=== PATIENT | male | born 1965 | race Caucasian/White ===

== ENCOUNTER 2017-02-08 11:39 | Emergency (ER) | payer BC ==
--- NOTE | 2017-02-08 12:12 | ERNOTE ---
Chest Pain/Cardiac HPI Date of Service: 02/08/17 Chief Complaint: Chest Pain Time Seen by Provider: 02/08/17 11:57 Source: patient Exam Limitations: no limitations Immunizations: IMMUNIZATION HX Immunizations Up to Date Yes History of Influenza Vaccine Yes Hx Pneumococcal Vaccination No Allergies/Adverse Reactions: Allergies No Known Allergies Allergy (Verified 02/08/17 11:56) Home Medications: HOME MEDICATIONS Albuterol Sulfate [Ventolin Hfa] 1 puff IH Q4H PRN 06/04/14 [Last Taken Unknown] Cetirizine HCl/Pseudoephedrine [Zyrtec-D Tablet] 1 each PO BID 06/04/14 [Last Taken Unknown] Montelukast Sodium [Singulair] 10 mg PO DAILY 06/04/14 [Last Taken Unknown] Ipratropium [place] 0.2 mg IH TID PRN 06/01/16 [Last Taken Unknown] Omeprazole [Prilosec] 20 mg PO DAILY 06/01/16 [Last Taken Unknown] Sodium Bicarbonate/Sod Citrat [[place] Heartburn Tab Eff] 1 each PO DAILY 06/01/16 [Last Taken Unknown] Azithromycin 250 mg PO DAILY #6 tablet 02/08/17 [Last Taken Unknown] Doxycycline Monohydrate 100 mg PO BID #20 tablet 02/08/17 [Last Taken Unknown] predniSONE [Prednisone] 3 tab PO DAILY #9 tab 02/08/17 [Last Taken Unknown] Narrative: Pt. comes in with c/o midsternal chest pressure and congestion for two days. Pt. states that along with this he has had SOB, diaphoresis, chills and fever. Pt. denies any dizziness, nausea, or vomiting. Pt. was sent to the ED after being seen there and having a elevated D dimer. Review of Systems - Review of Systems Constitutional: Present: fever, chills, weakness, fatigue, malaise. Absent: recent illness EYE: Present: no symptoms reported ENT: Present: no symptoms reported. Absent: nose congestion, nasal drainage, sore throat Respiratory: Present: shortness of breath, cough. Absent: wheezing Cardiology: Present: chest pain. Absent: palpitations, edema Gastrointestinal/Abdominal: Present: no symptoms reported. Absent: nausea, vomiting, diarrhea, abdominal pain Genitourinary: Present: no symptoms reported Musculoskeletal: Present: no symptoms reported. Absent: back pain, joint pain Skin: Present: no symptoms reported Neurological: Present: no symptoms reported. Absent: headache, dizziness/light- headedness, numbness, tingling All Other Systems: All systems neg except as marked - Patient's Past Medical History Patient History - Medical: GERD Patient History - Cardiac/Respiratory: Asthma Patient History - Cancer: No Hx of Cancer Patient History - Surgical Procedures: ENT, Hernia Repair Patient History - Other: None - Social History Living Situations: spouse Abuse History: No History of abuse Psych History: No pertinent hx Smoking Status: Never smoker Have you smoked in the past 12 months: No Do you dip or chew tobacco: Yes - 1 chew/day Alcohol Use: occasionally Drug Use: none - Immunizations Immunizations Up to Date: Yes Hx Pneumococcal Vaccination: No History of Influenza Vaccine: Yes Physical Exam - Physical Exam General Appearance: Present: wd/wn, alert, no apparent distress Eye Exam: Normal inspection: bilateral, PERRL: bilateral, EOMI: bilateral Ears, Nose, Throat: Present: normal ENT inspection, normal pharynx Neck: Present: normal inspection, nontender. Absent: lymphadenopathy (R), lymphadenopathy (L) Respiratory: Present: no respiratory distress, no accessory muscle use, chest nontender, decreased breath sounds Cardiovascular/Chest: Present: regular rate, rhythm, no murmur, normal peripheral pulses Gastrointestinal/Abdominal: Present: normal bowel sounds, nontender, nondistended, soft, no organomegaly Back Exam: Present: normal inspection, normal range of motion, no CVA tenderness , no vertebral tenderness Extremity Exam: Present: normal inspection, non-tender, normal range of motion, no edema Neurological Exam: Present: alert, oriented, normal mood/affect, no motor/ sensory deficits Skin Exam: Present: diaphoresis, pallor ED Progress - Results and Orders Patient's Lab Results:: I have reviewed the patient's lab results. - Vital Signs Patient's Vital Signs:: I have reviewed the patient's vital signs. Vital Signs: Vital Signs 02/08/17 11:48 Temperature 36.8 C Pulse Rate 107 H Respiratory 15 Rate Blood Pressure 127/86 O2 Sat by Pulse 95 Oximetry - X-Ray X-Ray #1 X-Ray: chest Interpretation: Reviewed by me X-ray Comments: RUL and LLL consolidation - CT/Ultrasound CT/Ultrasound Narrative: Chest CT negative for PE but with RLL and JOSE - Progress/Reassessment Chief Complaint: Chest Pain Progress:: Unchanged Departure - Departure Clinical Impression: Pneumonia Qualifiers: Pneumonia type: due to unspecified organism Laterality: bilateral Lung location : unspecified part of lung Qualified Code(s): J18.9 - Pneumonia, unspecified organism Disposition: Home self-care Condition: Good Instructions: Community-Acquired Pneumonia, Adult, [id number] Additional Instructions: Please follow up with primary provider in 2-3 days. Return here in 48- 72 hours to have TB test read. Referrals: Benita Mae FNP [Primary Care Provider] - Prescriptions: Azithromycin 250 mg PO DAILY #6 tablet Doxycycline Monohydrate 100 mg PO BID #20 tablet predniSONE [Prednisone] 3 tab PO DAILY #9 tab
[2017-02-08 12:25] LABS: Hematocrit 40.2 % (42.0-52.0); Hemoglobin 13.8 gm/dL (13.5-18.0); Mean Cell Volume 84.8 fl (78-100); Mean Corpuscular Hemoglobin 29.1 pg (27-31); Mean Corpuscular Hgb Conc 34.3 g/dl (32-36); Neutrophil # 12.8 K/mm3 (1.3-6.0); Neutrophil % 84.8 % (42-75.0); Platelet Count 194 K/mm3 (150-450); Red Blood Count 4.74 M/mm3 (4.7-6.0); Red Cell Distribution Width 11.9 % (11.5-14.0); White Blood Count 15.1 K/mm3 (4.0-10.5)
[2017-02-08 12:39] LABS: ALT 29 U/L (19-67); AST 27 U/L (0-48); Albumin * 3.7 gm/dl (3.4-5.0); Alkaline Phosphatase * 84 U/L (50-170); Anion Gap 12.6 mmol/L (6.8-13.8); BUN/Creatinine Ratio 14.4 (9.0-21.6); Bilirubin, Total 0.9 mg/dL (0.0-1.1); Blood Urea Nitrogen 15 mg/dL (6-23); Ca. Corrected For Albumin 8.5 mg/dL (8.4-10.2); Calcium * 8.6 mg/dL (7.9-10.9); Carbon Dioxide 28.6 mmol/L (24-32.6); Chloride 101 mmol/L (97-106); Glucose * 103 mg/dL (70-110); Potassium 4.2 mmol/L (3.4-4.6); Sodium 138 mmol/L (132-142); Total Protein 6.8 gm/dL (6.2-8.2)
[2017-02-08 12:45] LABS: Troponin I Less than 0.017 ng/ml (0.00-0.10)
[2017-02-08] MEDS ORDERED: TUBERCULIN,PURIF.PROT.DERIV. 5 TU/0.1 ML SYRINGE ID ONE ×2 (14:31→15:15)
[2017-02-08 15:18] VITALS: BP 121/76
[2017-02-12 18:45] LABS: Histoplasma Ab Yeast Ab <1:8
== END 2017-02-08 14:55 | disposition home or self-care (01) ==
LOC: ER 11:39
DX: J18.9 Pneumonia, unspecified organism (principal); Z72.0 Tobacco use; K21.9 Gastro-esophageal reflux disease without esophagitis